=== PATIENT | female | born 1950 | race Caucasian/White ===

== ENCOUNTER 2016-07-21 14:25 | Emergency (ER) | payer OTHER ==
[2016-07-21 14:42] VITALS: TEMP 97.7; O2SAT 97
--- NOTE | 2016-07-21 15:16 | ED.PDOC ---
History of Present Illness - General Chief Complaint: Upper Extremity Injury Stated Complaint: right shoulder pain Time Seen by Provider: 07/21/16 14:37 Source: patient Exam Limitations: no limitations - History of Present Illness Initial Comments: the patient is a 66-year-old female presenting to the emergency room secondary to right shoulder pain. 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 The pain is worse with movement. She did not fall on it or hit it in anyway. She was not using it in any unusual way. No previous shoulder injuries. She is moving the hand well. She is neurovascularly preserved. No external evidence of trauma.pain is primarily with active range of motion. Passive range of motion elicits very minimal pain. Minimal pain to palpation about the shoulder. No bruising noted. No obvious swelling. No crepitus. she did have a little bit of tingling in her handfor the first 30 minutes afterthe start of the pain but that has resolved. No motor or sensory deficits. Timing/Duration: momentarily Severity: moderate Improving Factors: immobilization Worsening Factors: movement Associated Symptoms: denies symptoms Allergies/Adverse Reactions: Allergies NO KNOWN ALLERGY Allergy (Verified 07/21/16 14:42) Home Medications: Ambulatory Orders Cyclobenzaprine HCl [Flexeril] 10 mg PO TID PRN #20 tab 07/15/15 Tramadol HCl [Ultram] 50 mg PO Q6HR PRN #30 tab 07/15/15 Cyclobenzaprine HCl [Flexeril] 5 mg PO TID PRN #30 tab 07/21/16 Review of Systems - Review of Systems Constitutional: States: no symptoms reported EENTM: States: no symptoms reported Respiratory: States: no symptoms reported Cardiology: States: no symptoms reported Gastrointestinal/Abdominal: States: no symptoms reported Genitourinary: States: no symptoms reported Musculoskeletal: States: see HPI Skin: States: no symptoms reported Neurological: States: no symptoms reported Endocrine: States: no symptoms reported All other Systems: No Change from Baseline Past Medical History (General) - Patient Medical History Hx Seizures: No Hx Stroke: No Hx Dementia: No Hx Asthma: No Hx of COPD: No Hx Cardiac Disorders: No Hx Congestive Heart Failure: No Hx Pacemaker: No Hx Hypertension: No Hx Thyroid Disease: No Hx Diabetes: No Hx Gastroesophageal Reflux: No Hx Renal Disease: No Hx Cancer: Yes - kidney Hx of HIV: No Hx Hepatitis C: No Hx MRSA: No Surgical History: no surgical history - Vaccination History Hx Tetanus, Diphtheria Vaccination: Yes Hx Influenza Vaccination: Yes Hx Pneumococcal Vaccination: Yes - Social History Hx Tobacco Use: No Hx Chewing Tobacco Use: No Hx Alcohol Use: No Hx Substance Use: No Hx Substance Use Treatment: No Hx Depression: No Hx Physical Abuse: No Hx Emotional Abuse: No Hx Suspected Abuse: No - Activities of Daily Living Hospice Agency (if applicable):: None - Female History Patient is a Female of Child Bearing Age (10 -59 yrs old): No Patient : No Family Medical History - Family History Mother Family History: Unknown Physical Exam - Physical Exam General Appearance: Alert, Comfortable, No apparent distress Eye Exam: bilateral normal Ears, Nose, Throat: hearing grossly normal, normal pharynx Neck: non-tender, supple Respiratory: no respiratory distress, no accessory muscle use Cardiovascular/Chest: normal peripheral pulses, no edema Peripheral Pulses: radial,right: 2+, radial,left: 2+ Rectal Exam: deferred Extremity: normal range of motion - passive there is pain with active range of motion, non-tender, no pedal edema, no calf tenderness, normal capillary refill Neurologic: expert witness II-XII nml as tested, alert, normal mood/affect, oriented x 3 Skin Exam: normal color Comments: Vital Signs - 24 hr 07/21/16 14:30 Temperature 97.7 F Pulse Rate [ 73 pulse ox] Respiratory 20 Rate Blood Pressure 175/81 [Left Arm] O2 Sat by Pulse 97 Oximetry Progress - Progress Progress: 07/21/16 15:17 the patient is a 66-year-old female presenting to the emergency room secondary to acute onset right shoulder pain that occurred while working. No history of trauma. The patient most likely has a rotator cuff strain on the right. She will be placed in a sling for the next week after which she can start doing range of motion exercises. the patient can take Aleve 2 tablets twice daily with food for the next week. Additionally she will be written for Flexeril for as needed use. A warm compress may help. She does need to follow up with her primary care doctor in the next 7-10 days. ER warnings were given for any acute worsening. I do not see any evidence of dislocation or fracture on her shoulder x-ray. Final read is pending at this time. Departure - Departure Clinical Impression: Rotator cuff strain Qualifiers: Encounter type: initial encounter Laterality: right Qualified Code(s): S46.011A - Strain of muscle(s) and tendon(s) of the rotator cuff of right shoulder, initial encounter Disposition: Discharge to Home or Self Care Condition: Fair Departure Forms: ED Discharge - Pt. Copy, Patient Portal Self Enrollment Instructions: DI for Rotator Cuff Injury Diet: regular diet Activity: no pushing/pulling with affected limb Referrals: Rafael Santos III, MD [Primary Care Provider] - 1-2 Weeks Prescriptions: Cyclobenzaprine HCl [Flexeril] 5 mg PO TID PRN #30 tab PRN Reason: Muscle Spasms Home Medications: Ambulatory Orders Cyclobenzaprine HCl [Flexeril] 10 mg PO TID PRN #20 tab 07/15/15 Tramadol HCl [Ultram] 50 mg PO Q6HR PRN #30 tab 07/15/15 Cyclobenzaprine HCl [Flexeril] 5 mg PO TID PRN #30 tab 07/21/16 Additional Instructions: the patient is a 66-year-old female presenting to the emergency room secondary to acute onset right shoulder pain that occurred while working. No history of trauma. The patient most likely has a rotator cuff strain on the right. She will be placed in a sling for the next week after which she can start doing range of motion exercises. the patient can take Aleve 2 tablets twice daily with food for the next week. Additionally she will be written for Flexeril for as needed use. A warm compress may help. She does need to follow up with her primary care doctor in the next 7-10 days. ER warnings were given for any acute worsening. I do not see any evidence of dislocation or fracture on her shoulder x-ray. Final read is pending at this time.
--- NOTE | 2016-07-21 15:24 | RAD ---
EXAM DESCRIPTION: Shoulder,Right 2 or More Views CLINICAL HISTORY: pain in shoulder after lifting desk COMPARISON: None Available. TECHNIQUE: Two views of the right shoulder. FINDINGS: There is good internal and external rotation. There is no fracture or bone lesion. There are no significant degenerative changes observed. IMPRESSION: 1. Normal shoulder. Electronically signed by: Serafin Ocampo MD 07/21/2016 3:24 PM CDT
[2016-07-21 16:10] VITALS: BP 150/84
== END 2016-07-21 16:05 | disposition home or self-care (01) ==
LOC: ER 14:25
DX: S46.011A Strain of muscle(s) and tendon(s) of the rotator cuff of right shoulder, initial encounter (principal); X50.0XXA Overexertion from strenuous movement or load, initial encounter; Y99.0 Civilian activity done for income or pay; Z85.528 Personal history of other malignant neoplasm of kidney

== ENCOUNTER 2017-05-20 18:45 | Emergency (ER) | payer OTHER ==
--- NOTE | 2017-05-20 19:10 | ED.PDOC ---
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 Occurred: this evening Pain - Upper Extremity: moderate: Shoulder, right Method of Injury: other - circular motion Improving Factors: rest Worsening Factors: movement Allergies/Adverse Reactions: Allergies NO KNOWN ALLERGY Allergy (Verified 07/21/16 14:42) Home Medications: Ambulatory Orders Cyclobenzaprine HCl [Flexeril] 10 mg PO TID PRN #20 tab 07/15/15 Tramadol HCl [Ultram] 50 mg PO Q6HR PRN #30 tab 07/15/15 Cyclobenzaprine HCl [Flexeril] 5 mg PO TID PRN #30 tab 07/21/16 Review of Systems - Review of Systems Constitutional: States: no symptoms reported EENTM: States: no symptoms reported Respiratory: States: no symptoms reported Cardiology: States: no symptoms reported Gastrointestinal/Abdominal: States: no symptoms reported Musculoskeletal: States: see HPI Neurological: States: no symptoms reported All other Systems: Reviewed and Negative, No Change from Baseline Past Medical History (General) - Patient Medical History Hx Seizures: No Hx Stroke: No Hx Dementia: No Hx Asthma: No Hx of COPD: No Hx Cardiac Disorders: No Hx Congestive Heart Failure: No Hx Pacemaker: No Hx Hypertension: No Hx Thyroid Disease: No Hx Diabetes: No Hx Gastroesophageal Reflux: No Hx Renal Disease: No Hx Cancer: Yes - kidney left Hx of HIV: No Hx Hepatitis C: No Hx MRSA: No Surgical History: other - left nephrectomy,hysterectomy,low back - Vaccination History Hx Tetanus, Diphtheria Vaccination: Yes Hx Influenza Vaccination: Yes Hx Pneumococcal Vaccination: Yes - Social History Hx Tobacco Use: No Hx Chewing Tobacco Use: No Hx Alcohol Use: No Hx Substance Use: No Hx Substance Use Treatment: No Hx Depression: No Hx Physical Abuse: No Hx Emotional Abuse: No Hx Suspected Abuse: No - Female History Patient : No Family Medical History - Family History Mother Family History: Unknown Hx Family Hypertension: Yes - sister Hx Family Stroke: Yes - dad,sister Hx Family Diabetes: Yes - mom Physical Exam - Physical Exam General Appearance: Alert, Comfortable, No apparent distress Eyes, Ears, Nose, Throat Exam: normal ENT inspection Neck: non-tender, full range of motion, supple, normal inspection Cardiovascular/Respiratory: regular rate, rhythm, no M/R/G, normal peripheral pulses, no JVD Abdominal Exam: non-tender, no organomegaly Back Exam: no CVA tenderness, no vertebral tenderness Shoulder Exam: normal inspection, limited ROM - right, soft tissue tenderness - bicipital groove Elbow/Forearm Exam: normal inspection, non-tender, normal ROM Hand Exam: normal inspection, non-tender, no evidence of injury, normal ROM Neuro/Tendon: normal sensation, normal motor functions Mental Status: alert, oriented x 3 Progress - Progress Progress: 05/20/17 19:33 Vital Signs - 8 hr 05/20/17 19:08 Temperature 99.2 F Pulse Rate [ 96 H left] Respiratory 18 Rate Blood Pressure 146/81 [left] O2 Sat by Pulse 96 Oximetry - Results/Orders Results/Orders: right shoulder joint injection given along the bicipital groove after cleansing site with alcohol and hibiclens lidocaine 1 % local anesthesia -1 cc given then Kenalog -40 mg /ml injected thru the joint .Aspiration done during the injection no blood noted .Tolerated procedure well. - EKG/XRAY/CT EKG: Sinus, no ST T wave changes Comments: HR-h9 XRAY: right shoulder rotator cuff calcific tendinitis rght Departure - Departure Clinical Impression: Right rotator cuff tendinitis Shoulder pain, right Qualifiers: Chronicity: unspecified Qualified Code(s): M25.511 - Pain in right shoulder Time of Disposition: 21:04 Disposition: Discharge to Home or Self Care Condition: Fair Departure Forms: ED Discharge - Pt. Copy, Patient Portal Self Enrollment Instructions: Calcific Tendonitis of the Shoulder, DI for Calcific Tendonitis of the Shoulder Referrals: Rafael Santos III, MD [Primary Care Provider] - 1-2 Weeks Home Medications: Ambulatory Orders Cyclobenzaprine HCl [Flexeril] 10 mg PO TID PRN #20 tab 06/07/16 Tramadol HCl [Ultram] 50 mg PO Q6HR PRN #30 tab 07/15/15 Cyclobenzaprine HCl [Flexeril] 5 mg PO TID PRN #30 tab 07/21/16 Additional Instructions: Ice pack to affected area 20 minutes am/pm as needed;May apply aspercreme 2-3 x a day for pain.Return to ER as needed
[2017-05-20 19:18] VITALS: O2SAT 96
--- NOTE | 2017-05-20 19:48 | RAD ---
EXAM DESCRIPTION: Shoulder,Right 2 or More Views CLINICAL HISTORY: 66 years Female, shoulder pain after lifting arm up COMPARISON: July 21, 2016 FINDINGS: Mild acromioclavicular osteoarthrosis. Calcification adjacent to the humeral head suggestive of rotator cuff calcific tendinitis. No fracture or dislocation. Soft tissues are unremarkable. IMPRESSION: No acute abnormality. Findings suggestive of rotator cuff calcific tendinitis. Mild acromioclavicular osteoarthrosis. Electronically signed by: Medhat Pepe MD 05/20/2017 7:46 PM CDT
[2017-05-20] MEDS ORDERED: CHLORHEXIDINE GLUCONATE 4 % 15 ML UD TOP ONE (20:26)
[2017-05-20] MEDS: LIDOCAINE 1% 10 ML VIAL INJ ONE (20:32)
[2017-05-20] MEDS: TRIAMCINOLONE ACETONIDE INJ 40 MG/ML VIAL INJ ONE (20:34)
[2017-05-20 21:02] VITALS: BP 133/82; TEMP 98.4
== END 2017-05-20 21:10 | disposition home or self-care (01) ==
LOC: ER 18:45
DX: M75.81 Other shoulder lesions, right shoulder (principal); Z85.528 Personal history of other malignant neoplasm of kidney; Z90.5 Acquired absence of kidney